=== PATIENT | female | born 1950 | race Caucasian/White ===

== ENCOUNTER → 2019-10-14 11:08 | Outpatient (CLI) | payer MEDICARE, BC, SELFPAY ==
--- NOTE | ~2019-10-14 | MM_ITS ---
EXAMINATION: MM screening iván BI w deangelo HISTORY: Screening TECHNIQUE: Craniocaudal and mediolateral oblique 3-D tomosynthesis images were obtained and synthetic 2-D images were generated. CAD analysis was submitted and interpreted. COMPARISON: No prior mammogram is available for comparison at this institution. BREAST PARENCHYMAL COMPOSITION: There are scattered areas of fibroglandular density. FINDINGS: There is no evidence of suspicious mass, calcification, or architectural distortion to sugg est malignancy in either breast. There has been no suspicious interval change. IMPRESSION: 1. No mammographic evidence of malignancy. 2. Recommend routine screening mammography in one year. BI-RADS Category 1: Negative Reviewed, dictated and finalized at location A.
== END ==
PROVIDERS: PCP Internal Medicine; Visit Provider Internal Medicine
DX: Z12.31 Encounter for screening mammogram for malignant neoplasm of breast (principal)
CPT/HCPCS: 77063; 77067

== ENCOUNTER 2020-11-09 04:44 | Day surgery (SDC) | payer MEDICARE, BC, SELFPAY ==
[2020-11-09 09:08] VITALS: BP 145/77; PULSE 64; RESP 16; TEMP 36.1; O2SAT 97; BMI 29.7
[2020-11-09] MEDS: LACTATED RINGERS 1,000 ML 150 ML IV CONT (09:21)
--- NOTE | 2020-11-09 09:53 | PM.HPGS ---
History of Present Illness History of Present Illness Consent: Risks, benefits, and alternatives have been discussed and questions answered. Patient agrees to proceed with procedure. Chief complaint: positive cologuard Narrative: Hillary Holland is a 70 year old female referred for colon cancer screening. She performed a Cologuard test which was positive Review of Systems Review of Systems: All systems reviewed & are unremarkable except as noted in HPI and below PMFSH Family History Family History Mother Cerebrovascular accident Social History Social History Smoking status: Never smoker Second hand tobacco smoke exposure: Yes Alcohol intake: current Alcohol use details: rare alcohol use Substance use: never Substance use type: does not use Living arrangements: alone Gender identity (if verbalized by the patient): Female Spiritual care concerns: No Meds Home Medications and Allergies Home Medications Medication Instructions Recorded Confirmed Type lovastatin 40 mg tablet 40 mg PO DAILY #90 tablet 09/15/20 11/09/20 Rx quinapril 40 mg tablet 40 mg PO DAILY #90 tablet 09/15/20 11/09/20 Rx triamterene 37.5 1 tablet PO QAM #90 tablet 09/15/20 11/09/20 Rx mg-hydrochlorothiazide 25 mg tablet naproxen sodium [Aleve] 220 mg PO Q12H 10/31/20 11/09/20 History Allergies Allergy/AdvReac Type Severity Reaction Status Date / Time codeine Allergy Unknown Headache Verified 11/09/20 09:07 Vital Signs Vital Signs - 24 hr 11/09/20 09:08 Temperature 36.1 C L Pulse Rate 64 Respiratory Rate 16 Blood Pressure 145/77 H Pulse Oximetry 97 Exam Resp: Auscultation: clear to auscultation bilaterally Cardio: Rate: regular rate Rhythm: regular rhythm GI: GI Palp: Yes Soft to palpation and No Tenderness to palpation present (GI) Assessment and Plan Assessment and plan (1) Colon cancer screening: Code(s): Z12.11 - Encounter for screening for malignant neoplasm of colon Status: Acute Assessment and Plan: Colonoscopy with possible biopsy or polypectomy or cautery or injection of substances.
--- NOTE | 2020-11-09 10:21 | WPDANESEPPF ---
Anes - Initial Pre Proc Eval Procedure: Operation Date: 11/09/20 10:30 Proposed Procedures p Colonoscopy - Alejandro Li MD Date/Time: 11/09/20 10:21 Surgeon: Alejandro Li MD Pre Op Diagnosis: positive cologuard Patient Data Age: 70 Gender: F Height: 1.57 m Weight: 73.7 kg Last Vital Signs Temp 97 F L 11/09/20 09:08 Pulse 64 11/09/20 09:08 Resp 16 11/09/20 09:08 BP 145/77 H 11/09/20 09:08 Pulse Ox 97 11/09/20 09:08 Allergies Allergy/AdvReac Type Severity Reaction Status Date / Time codeine Allergy Unknown Headache Verified 11/09/20 09:07 Home Medications Medication Instructions Recorded Confirmed Type lovastatin 40 mg tablet 40 mg PO DAILY #90 tablet 09/15/20 11/09/20 Rx quinapril 40 mg tablet 40 mg PO DAILY #90 tablet 09/15/20 11/09/20 Rx triamterene 37.5 1 tablet PO QAM #90 tablet 09/15/20 11/09/20 Rx mg-hydrochlorothiazide 25 mg tablet naproxen sodium [Aleve] 220 mg PO Q12H 10/31/20 11/09/20 History Patient hx anesthesia problems: none Family hx anesthesia problems: none PMFSH Past Medical History Medical History (Updated 11/09/20 @ 10:19 by Андрей Maya MD) Essential (primary) hypertension Other and unspecified hyperlipidemia Family History Family History Mother Cerebrovascular accident Social History Social History Smoking status: Never smoker Second hand tobacco smoke exposure: Yes Alcohol intake: current Alcohol use details: rare alcohol use Substance use: never Substance use type: does not use Living arrangements: alone Gender identity (if verbalized by the patient): Female Spiritual care concerns: No Anes - Eval Final PreProcedure Day of Procedure 11/09/20 10:21 Patient weight: normal Heart: regular rate and rhythm Lungs: clear to auscultation Airway: Mallampati scale class II Neurological: alert and oriented Last oral intake: >/= 8 hours ASA classification: II Emergent: no Anesthetic plan: proceed Anesthesia type and monitoring: general GIVS and standard monitoring Informed Consent: The patient's anesthetic plan and its attendant risks and benefits were discussed with the patient/family/POA. Questions were solicited and answers provided to the satisfaction of the patient/family/POA.
[2020-11-09 10:49] VITALS: BP 110/66; PULSE 60; RESP 19; O2SAT 95
[2020-11-09 10:59] VITALS: BP 109/54; PULSE 57; RESP 21; O2SAT 96
[2020-11-09 11:09] VITALS: BP 150/89; PULSE 55; RESP 20; O2SAT 98
== END 2020-11-09 11:14 | disposition home or self-care (01) ==
PROVIDERS: PCP Internal Medicine; Visit Provider Internal Medicine Gastroenterology
PROC: 0DJD8ZZ Inspection of Lower Intestinal Tract, Via Natural or Artificial Opening Endoscopic (ICD-10-PCS; CPT 45378; principal; 2020-11-09 10:30)
DX: Z12.11 Encounter for screening for malignant neoplasm of colon (principal); R19.5 Other fecal abnormalities; I10 Essential (primary) hypertension; E78.49 Other hyperlipidemia
CPT/HCPCS: 45378; J2704; J7120

== ENCOUNTER → 2020-11-15 10:18 | Outpatient (CLI) | payer MEDICARE, BC, SELFPAY ==
--- NOTE | ~2020-11-15 | DEXA_ITS ---
Bone Density Report Name: Hillary Holland Age: 70 Sex: Female Ethnicity: White Date of : 1950 Indication: osteopenia; height loss; postmenopausal Referring Provider: ZACHARY RODRIGUEZ Study: Bone densitometry was performed. Exam Date: November 15, 2020 Accession number: [id number] Bone Density: Region BMD T-score Z-score Classification AP Spine (L1-L4) 0.847 -1.8 0.2 Osteopenia Femoral Neck (Left) 0.593 -2.3 -0.6 Osteopenia Total Hip (Left) 0.815 -1.0 0.4 Normal Femoral Neck (Right) 0.601 -2.2 -0.5 Osteopenia Total Hip (Right) 0.764 -1.5 0.0 Osteopenia Total Hip Mean 0.790 -1.3 0.2 Osteopenia World Health Organization criteria for BMD impression classify patients as: Normal (T-score at or above -1.0), Osteopenia (T-score between -1.0 and -2.5), or Osteoporosis (T-score at or below -2.5). 10-year Fracture Risk(1): Major Osteoporotic Fracture 12% Hip Fracture 2.5% Reported Risk Factors: [place] (), Neck BMD=0.593, BMI=31.1 (1) FRAX(R) Version 3.08. Fracture probability calculated for an untreated patient. Fracture probability may be lower if the patient has received treatment. Previous Exams: Region Exam Age BMD T-score BMD Change BMD Change Date g/cm2 vs Baseline vs Previous AP Spine(L1-L4) 11/15/2020 70 0.847 -1.8 0.120* 0.054* 04/08/2017 66 0.793 -2.3 0.066* -0.025* 03/27/2015 64 0.818 -2.1 0.091* 0.066* 10/08/2006 56 0.753 -2.7 0.026* 0.026* 09/07/2004 54 0.727 -2.9 Total Hip(Left) 11/15/2020 70 0.815 -1.0 -0.010 0.030* 04/08/2017 66 0.786 -1.3 -0.039* -0.033* 03/27/2015 64 0.819 -1.0 -0.007 0.063* 10/08/2006 56 0.756 -1.5 -0.069* -0.069* 09/07/2004 54 0.825 -1.0 Total Hip(Right) 11/15/2020 70 0.764 -1.5 -0.012 0.000 04/08/2017 66 0.764 -1.5 -0.012 -0.037* 03/27/2015 64 0.801 -1.2 0.025 0.074* 10/08/2006 56 0.727 -1.8 -0.049* -0.049* 09/07/2004 54 0.776 -1.4 *Denotes significance at 95% confidence level, LSC for AP Spine = 0.022 g/cm2, LSC for Total Hip = 0.027 g/cm2 Clinical Information Provided by Patient: Has used the following medications: Vitamin D, Calcium Patient maximum height was 63 Menopause Age: 43 Does not regularly consume dairy products Drinks caffeinated beverages Onset of mens
== END ==
PROVIDERS: PCP Internal Medicine; Visit Provider Internal Medicine
DX: M81.0 Age-related osteoporosis without current pathological fracture (principal); M85.88 Other specified disorders of bone density and structure, other site; M85.852 Other specified disorders of bone density and structure, left thigh; M85.851 Other specified disorders of bone density and structure, right thigh
CPT/HCPCS: 77080

== ENCOUNTER → 2022-01-31 11:11 | Outpatient (CLI) | payer MEDICARE, BC, SELFPAY ==
--- NOTE | ~2022-01-31 | MM_ITS ---
EXAMINATION: MM screening iván BI w deangelo HISTORY: Screening mammogram TECHNIQUE: Craniocaudal and mediolateral oblique 3-D tomosynthesis images were obtained and synthetic 2-D images were generated. CAD analysis was submitted and interpreted. COMPARISON: 10/11/2019, 04/08/2017 bilateral screening mammogram examinations BREAST PARENCHYMAL COMPOSITION: There are scattered areas of fibroglandular density. FINDINGS: There is no evidence of suspicious mass, calcification, or architectural distortion to sugg est malignancy in either breast. There has been no suspicious interval change. IMPRESSION: 1. No mammographic evidence of malignancy. 2. Recommend routine screening mammography in one year. BI-RADS Category 1: Negative Reviewed, dictated and finalized at location A. E MAKER
== END ==
PROVIDERS: PCP Internal Medicine; Visit Provider Internal Medicine
DX: Z12.31 Encounter for screening mammogram for malignant neoplasm of breast (principal)
CPT/HCPCS: 77063; 77067

== ENCOUNTER → 2023-03-12 10:42 | Outpatient (CLI) | payer MEDICARE, BC, SELFPAY ==
--- NOTE | ~2023-03-12 | DEXA_ITS ---
Bone Density Report Name: ALVARADO HILL Age: 72 Sex: Female Ethnicity: White Date of : 1950 Indication: osteopenia; height loss;postmenopausal Referring Provider: MANDY, BECCA Sierra Study: Bone densitometry was performed. Exam Date: March 12, 2023 Accession number: [id number] Bone Density: Region BMD T-score Z-score Classification AP Spine (L1-L4) 0.870 -1.6 0.6 Osteopenia Femoral Neck (Left) 0.613 -2.1 -0.2 Osteopenia Total Hip (Left) 0.816 -1.0 0.6 Normal Femoral Neck (Right) 0.624 -2.0 -0.1 Osteopenia Total Hip (Right) 0.753 -1.5 0.0 Osteopenia Total Hip Mean 0.785 -1.3 0.3 Osteopenia World Health Organization criteria for BMD impression classify patients as: Normal (T-score at or above -1.0), Osteopenia (T-score between -1.0 and -2.5), or Osteoporosis (T-score at or below -2.5). 10-year Fracture Risk(1): Major Osteoporotic Fracture 12% Hip Fracture 2.4% Reported Risk Factors: [place] (), Neck BMD=0.613, BMI=31.5 (1) FRAX(R) Version 3.08. Fracture probability calculated for an untreated patient. Fracture probability may be lower if the patient has received treatment. Previous Exams: Region Exam Age BMD T-score BMD Change BMD Change Date g/cm2 vs Baseline vs Previous AP Spine(L1-L4) 03/12/2023 72 0.870 -1.6 0.143* 0.024* 11/15/2020 70 0.847 -1.8 0.120* 0.054* 04/08/2017 66 0.793 -2.3 0.066* -0.025* 03/27/2015 64 0.818 -2.1 0.091* 0.066* 10/08/2006 56 0.753 -2.7 0.026* 0.026* 09/07/2004 54 0.727 -2.9 Total Hip(Left) 03/12/2023 72 0.816 -1.0 -0.009 0.001 11/15/2020 70 0.815 -1.0 -0.010 0.030* 04/08/2017 66 0.786 -1.3 -0.039* -0.033* 03/27/2015 64 0.819 -1.0 -0.007 0.063* 10/08/2006 56 0.756 -1.5 -0.069* -0.069* 09/07/2004 54 0.825 -1.0 Total Hip(Right) 03/12/2023 72 0.753 -1.5 -0.023 -0.011 11/15/2020 70 0.764 -1.5 -0.012 0.000 04/08/2017 66 0.764 -1.5 -0.012 -0.037* 03/27/2015 64 0.801 -1.2 0.025 0.074* 10/08/2006 56 0.727 -1.8 -0.049* -0.049* 09/07/2004 54 0.776 -1.4 *Denotes significance at 95% confidence level, LSC for AP Spine = 0.022 g/cm2, LSC for Total Hip = 0.027 g/cm2 Clinical Information Provided by Patient:
--- NOTE | ~2023-03-12 | MM_ITS ---
EXAMINATION: MM screening iván BI w deangelo HISTORY: Screening mammogram TECHNIQUE: Craniocaudal and mediolateral oblique 3-D tomosynthesis images were obtained and synthetic 2-D images were generated. CAD analysis was submitted and interpreted. COMPARISON: 01/31/2022, 10/14/2019, 04/08/2017 bilateral screening mammogram examinations BREAST PARENCHYMAL COMPOSITION: There are scattered areas of fibroglandular density. FINDINGS: Occasional bilateral circumscribed low-density opacities, consistent with benign process(es ). There is no evidence of suspicious mass, calcification, or architectural distortion to suggest maura gnancy in either breast. There has been no suspicious interval change. IMPRESSION: 1. No mammographic evidence of malignancy. 2. Recommend. Routine screening mammography in one year. BI-RADS Category 2: Benign finding(s). Reviewed, dictated and finalized at location A. ECTRIC PRESS OPERATOR
== END ==
PROVIDERS: PCP Internal Medicine; Visit Provider Internal Medicine
DX: Z12.31 Encounter for screening mammogram for malignant neoplasm of breast (principal); M85.88 Other specified disorders of bone density and structure, other site; M85.852 Other specified disorders of bone density and structure, left thigh; M85.851 Other specified disorders of bone density and structure, right thigh
CPT/HCPCS: 77063; 77067; 77080

== ENCOUNTER 2025-01-19 10:12 | Outpatient (CLI) | payer MEDICARE, BC, SELFPAY ==
--- NOTE | ~2025-01-19 | MM_ITS ---
EXAMINATION: MM screening iván BI w deangelo HISTORY: Screening TECHNIQUE: Craniocaudal and mediolateral oblique 3-D tomosynthesis images were obtained and synthetic 2-D images were generated. CAD analysis was submitted and interpreted. COMPARISON: Comparison to multiple prior studies sequentially, with oldest reviewed study dated 04/08/2017. BREAST PARENCHYMAL COMPOSITION: Not dense: There are scattered areas of fibroglandular density. FINDINGS: The right breast is stable without evidence for malignancy. There is a developing circumscribed mass in the upper outer quadrant of the left breast, middle third. IMPRESSION: 1. Developing left breast mass upper outer quadrant, middle third. 2. Additional mammographic views and possible breast ultrasound are recommended. BI-RADS Category 0: Incomplete: Needs additional imaging evaluation. Reviewed, dictated and finalized at location B. IMPRESSION: 1. Developing left breast mass upper outer quadrant, middle third. 2. Additional mammographic views and possible breast ultrasound are recommended . BI-RADS Category 0: Incomplete: Needs additional imaging evaluation.
== END 2025-01-19 10:13 | disposition home or self-care (01) ==
LOC: MICIMG 10:13
PROVIDERS: PCP Internal Medicine; Visit Provider Internal Medicine
DX: Z12.31 Encounter for screening mammogram for malignant neoplasm of breast (principal); R92.8 Other abnormal and inconclusive findings on diagnostic imaging of breast
CPT/HCPCS: 77063; 77067

== ENCOUNTER 2025-03-18 07:57 | Outpatient (CLI) | payer MEDICARE, BC, SELFPAY ==
--- NOTE | ~2025-03-18 | MMUS_ITS ---
EXAMINATION: MM diagnostic iván LT w deangelo, US breast LT limited HISTORY: Additional imaging TECHNIQUE: Craniocaudal and mediolateral oblique 3-D tomosynthesis images were obtained and synthetic 2-D images were generated. CAD analysis was submitted and interpreted. Grayscale sonography over the area(s) of interest with color Doppler if there is a finding. COMPARISON: January 19 BREAST PARENCHYMAL COMPOSITION: Not Dense: There are scattered areas of fibroglandular MAMMOGRAM FINDINGS: At approximately 12:00, there are 2 circumscribed masses. There are no suspicious calcifications. No unexplained architectural distortion is seen. There are no skin or nipple abnormalities identified. There is no adenopathy seen on the images submitted. ULTRASOUND FINDINGS: Sonography through the 12:00 position demonstrates a 10 mm cyst is seen at 12:00, accounting for the dominant mammographic nodule, for which the patient was recalled. Adjacent is another circumscribed, homogeneous, ovoid, hypoechoic mass, with a parallel orientation and a maximum dimension of 10 mm. This is believed to represent a second nodule, and the may represent a cyst containing debris or a fibroadenoma. The appearance is benign. IMPRESSION: No mammographic or sonographic evidence to suggest malignancy is seen. The patient may return to screening mammography as per ACR guidelines. BI-RADS 2 - Benign. Reviewed, dictated and finalized at location A. IN EXTERMINATOR IMPRESSION: No mammographic or sonographic evidence to suggest malignancy is seen. The stewart ent may return to screening mammography as per ACR guidelines. BI-RADS 2 - Benign.
== END 2025-03-18 07:58 | disposition home or self-care (01) ==
LOC: MICIMG 07:57
PROVIDERS: PCP Internal Medicine
DX: N63.21 Unspecified lump in the left breast, upper outer quadrant (principal)
CPT/HCPCS: 76642; 77061; 77065; G0279